=== PATIENT | male | born 1945 | race Caucasian/White ===

== ENCOUNTER 2018-07-14 12:15 | Observation (INO) | payer MEDICARE, OTHER ==
[~2018-07-14] VITALS: Ht 172.7 cm; Wt 94.0 kg
[2018-07-14] MEDS ORDERED: DICL50TA11 PO (17:41)
[2018-07-14] MEDS ORDERED: GEMF600T8 PO (17:41)
[2018-07-14] MEDS ORDERED: ATEN50TA PO (17:41)
[2018-07-14] MEDS ORDERED: CLON-379 PO (17:41)
[2018-07-14] MEDS ORDERED: TAMS0.4C2 PO (17:42)
[2018-07-14] MEDS ORDERED: DONE10TA7 PO (17:42)
[2018-07-14] MEDS ORDERED: ATOR20TA38 PO (17:43)
[2018-07-14] MEDS ORDERED: EZET10TA31 PO (17:44)
[2018-07-14] MEDS ORDERED: ESOM40CA PO (17:44)
[2018-07-14] MEDS ORDERED: ADV25050 INHALATION (17:44)
[2018-07-14] MEDS ORDERED: LINA145C PO (17:45)
[2018-07-14] MEDS ORDERED: DUTA0.5C PO (17:45)
[2018-07-14] MEDS ORDERED: ICOS1CAP PO (17:46)
[2018-07-14] MEDS ORDERED: ERGO500013 PO (17:47)
[2018-07-14] MEDS ORDERED: ONDANSETRON 4 MG INJ IV PRN ×2 (19:00→22:00)
[2018-07-14] MEDS ORDERED: ASPIRIN 81 MG TAB PO ONE (19:00)
[2018-07-14] MEDS ORDERED: ACETAMINOPHEN 325 MG TAB PO PRN ×2 (19:00→22:00)
[2018-07-14 20:41] VITALS: PULSE 64
[2018-07-14 20:49] VITALS: BP 172/82; PULSE 63; RESP 18
--- NOTE | 2018-07-14 21:39 | ERD ---
ER Documentation Chief Complaint Chief Complaint RIGHT SIDE FACIAL NUMBNESS 2 DAYS AGO,RESOLVED, KERNS TODAY HPI This is a 72-year-old male with a past medical history of hypertension, hyperlipidemia, COPD, dementia who is presenting with 2 days of left-sided facial paresthesias with forehead sparing and an associated right-sided head ache. The patient is also felt lightheaded and slightly imbalanced over the last few days as well. The patient does not endorse any alleviating or exacerbating factors. His symptoms started upon waking 2 days ago. The patient has had no other focal deficits. The patient has had no weakness or numbness or tingling to the extremities. The patient denies feeling sick recently. The patient denies fever or chills. The patient has had no headache or vision changes. The patient does not endorse neck or back pain. The patient denies lightheadedness or dizziness. The patient has had no chest pain or trouble breathing. The patient denies nausea or vomiting. The patient denies abdominal pain. The patient denies changes to bowel movements or urination. ROS All systems reviewed and are negative except as per history of present illness. Medications Home Meds Reported Medications Ergocalciferol (Vitamin D2) (VITAMIN D2) 50,000 Unit Capsule, [address] UNIT PO Q7D, CAP OR THU. 07/14/18 Icosapent Ethyl (VASCEPA) 1 Gm Capsule, 1 GM PO QID, CAP 07/14/18 Linaclotide (LINZESS) 145 Mcg Capsule, 145 MCG PO DAILY, #30 CAP 07/14/18 Dutasteride* (Avodart*) 0.5 Mg Capsule, 0.5 MG PO DAILY, CAP 07/14/18 Ezetimibe* (Zetia*) 10 Mg Tablet, 10 MG PO DAILY, TAB 07/14/18 Esomeprazole Mag Trihydrate (Nexium) 40 Mg Capsule.dr, 40 MG PO DAILY, #30 CAP 07/14/18 Salmeterol Xinaf/Fluticasone* (Advair*) 250-50 Diskus Inhaler, 1 INH INHALATION BID, #1 INHALER 07/14/18 Atorvastatin Calcium* (Atorvastatin Calcium*) 20 Mg Tablet, 20 MG PO QHS, #30 TAB 07/14/18 Donepezil* (Aricept*) 10 Mg Tablet, 10 MG PO DAILY, TAB 07/14/18 Tamsulosin Hcl* (Tamsulosin Hcl*) 0.4 Mg Cap.er.24h, 0.4 MG PO HS, CAP 07/14/18 Diclofenac Sodium* (Diclofenac Sodium*) 50 Mg Tablet.dr, 50 MG PO BID, #60 TAB 07/14/18 Gemfibrozil* (Gemfibrozil*) 600 Mg Tablet, 600 MG PO BID, TAB 07/14/18 Atenolol* (Atenolol*) 50 Mg Tablet, 50 MG PO DAILY, #30 TAB 07/14/18 Clonidine Hcl* (Clonidine Hcl*) 0.1 Mg Tab, 0.1 MG PO DAILY, TAB 07/14/18 Allergies Allergies: Coded Allergies: No Known Allergy (Unverified , 07/14/18) PMhx/Soc History of Surgery: No Anesthesia Reaction: No Hx Neurological Disorder: No Hx Respiratory Disorders: No Hx Cardiac Disorders: Yes (HTN, HYPERCHOLESTEROLEMIA) Hx Psychiatric Problems: No Hx Miscellaneous Medical Probl: No Hx Alcohol Use: Yes Hx Substance Use: No Hx Tobacco Use: Yes Smoking Status: Current every day smoker Physical Exam Vitals Vital Signs Date Temp Pulse Resp B/P (MAP) Pulse Ox O2 O2 Flow FiO2 Time Delivery Rate 07/14/18 63 16 132/71 96 Room Air 17:35 (91) 07/14/18 98.0 64 18 157/70 99 12:28 (99) Physical Exam Const: No apparent distress, well-developed, well-nourished Head: Normocephalic, Atraumatic Eyes: Normal Conjunctiva. Extraocular movements intact. Pupils equal, round and reactive to light ENT: Normal External Ears, Nose and Mouth. Neck: Full range of motion. No meningismus. Resp: Clear to auscultation bilaterally, No wheezes, rales or rhonchi Cardio: Regular rate and rhythm. No murmurs, rubs or gallops Abd: Soft, non tender, non distended. Normal bowel sounds Skin: No petechiae or rashes Back: No midline tenderness. No CVA tenderness Ext: No cyanosis, or edema Neur: Awake and alert, oriented 4. Cranial nerves intact. No facial droop. Normal strength, sensation and coordination. Psych: Normal Mood and Affect Result Diagram: 07/14/18 1616 07/14/18 1616 Results 24 hrs Laboratory Tests Test 07/14/18 16:16 White Blood Count 8.9 10^3/ul Red Blood Count 4.76 10^6/ul Hemoglobin 14.6 g/dl Hematocrit 43.1 % Mean Corpuscular Volume 90.5 fl Mean Corpuscular Hemoglobin 30.7 pg Mean Corpuscular Hemoglobin Concent 33.9 g/dl Red Cell Distribution Width 13.0 % Platelet Count 213 10^3/UL Mean Platelet Volume 9.8 fl Immature Granulocytes % 0.600 % Neutrophils % 60.5 % Lymphocytes % 29.6 % Monocytes % 6.1 % Eosinophils % 3.0 % Basophils % 0.2 % Nucleated Red Blood Cells % 0.0 /100WBC Immature Granulocytes # 0.050 10^3/ul Neutrophils # 5.4 10^3/ul Lymphocytes # 2.6 10^3/ul Monocytes # 0.5 10^3/ul Eosinophils # 0.3 10^3/ul Basophils # 0.0 10^3/ul Nucleated Red Blood Cells # 0.0 10^3/ul Prothrombin Time 11.6 Sec Prothrombin Time Ratio 0.9 INR International Normalized Ratio 0.84 Activated Partial Thromboplast Time 30.9 Sec Urine Color YELLOW Urine Clarity CLEAR Urine pH 5.0 Urine Specific [place] 1.023 Urine Ketones NEGATIVE mg/dL Urine Nitrite NEGATIVE mg/dL Urine Bilirubin NEGATIVE mg/dL Urine Urobilinogen NEGATIVE mg/dL Urine Leukocyte Esterase NEGATIVE Lacey/ul Urine Microscopic RBC 2 /HPF Urine Microscopic WBC 1 /HPF Urine Mucus FEW /HPF Urine Hemoglobin 1+ mg/dL Urine Glucose NEGATIVE mg/dL Urine Total Protein NEGATIVE mg/dl Sodium Level 144 mmol/L Potassium Level 4.0 mmol/L Chloride Level 102 mmol/L Carbon Dioxide Level 30 mmol/L Anion Gap 12 Blood Urea Nitrogen 15 mg/dl Creatinine 0.83 mg/dl Est Glomerular Filtrat Rate mL/min mL/min Glucose Level 95 mg/dl Hemoglobin A1c 5.5 % Calcium Level 9.3 mg/dl Troponin I < 0.012 ng/ml Triglycerides Level 371 mg/dl Cholesterol Level 202 mg/dl LDL Cholesterol, Calculated 105 mg/dl HDL Cholesterol 23 mg/dl Cholesterol/HDL Ratio 8.7 RATIO Urine Opiates Screen Negative Urine Barbiturates Negative Urine Amphetamines Screen Negative Urine Benzodiazepines Screen Negative Urine Cocaine Screen Negative Urine Cannabinoids Negative Procedures/MDM MDM The patient's presentation warrants further investigation. Previous medical records, if available, were reviewed. LABS The patient's laboratory testing was obtained and reviewed. No emergent tr eatment was required unless described below. CBC: No E/o of systemic infection or severe anemia or thrombocytopenia BMP: No E/o severe acidosis or alkalosis or renal failure or diabetic ketoacidosis PT/INR: No E/o significant coagulopathy Troponin: No E/o acute ischemia Lipid panel: Hyperlipidemia and hypertriglyceridemia Urine: No E/o acute infection or hematuria Tox: No E/o alcohol abuse. No E/o illicit drug use. No E/o salicylate or acetaminophen use. EKG EKG read by me: Rate/Rhythm: Sinus bradycardia with a marketed sinus arrhythmia at 59 bpm QRS and QTc. Intervals: Normal prolonged [place] interval indicating a first-degree AV block. Beals: Normal Impression: No evidence of acute ischemia. Sinus arrhythmia IMAGING Imaging and Radiology interpretation reviewed. CXR FINDINGS: Mild central venous congestion. No pulmonary consolidation or edema. No effusion or pneumothorax. Cardiac silhouette is mildly enlarged. No acute osseous abnormality. Calcified atherosclerosis of the thoracic aorta. IMPRESSION: Mild cardiomegaly with mild central venous congestion. Calcified atherosclerosis of the thoracic aorta. Electronically viewed and signed by Physician Ike on 07/14/2018 17:01 CT Head IMPRESSION: No acute intracranial abnormalities. Mild chronic-appearing microvas cular ischemic changes of the supratentorial white matter. MRI of the brain recommended for further evaluation. Critical results were discussed with Dr. Wagner by telephone 07/14/2018 4:48:54 PM. Electronically viewed and signed by Demarcus House MD, MD on 07/14/2018 16:52 TREATMENT/DISPOSITION The patient presents with right-sided facial numbness and a headache. Symptoms have been ongoing for over 2 days. While the patient's physical exam is reassuring, I cannot definitively rule out a TIA from the emergency department. I do feel the patient would benefit from MRI imaging in the hospital. The patient is not a TPA or manual thrombectomy candidate. The patient also presents with a headache. Differential diagnosis includes migraine, tension headache, cluster headache. The patient has no focal deficits. The neurologic exam is reassuring. I have decreased suspicion for cerebral ischemia. There was no trauma or injury. There is no personal or family history of cerebral aneurysm. This is not the worst headache of the patient's life. It was not acutely severe. It is been progressive in nature. I have decreased suspicion for SAH or other ICH. I have low suspicion for temporal arteritis, cavernous venous thrombosis, subdural hematoma, epidural hematoma, meningitis. The patient was treated with a dose of aspirin in the emergency department. At this time, I feel that the patient requires admission for further evaluation and management. The patient will be admitted to Dr. Armendariz in accordance with the patient's insurance. The patient was accepted to telemetry at 6:40 PM on July 14, 2018. Disclaimer: Inadvertent spelling and grammatical errors are likely due to EHR/dictation software use and do not reflect on the overall quality of patient care. Note that the electronic time recorded on this note does not necessarily reflect the actual time of the patient encounter. Departure Diagnosis: Primary Impression: TIA (transient ischemic attack) Additional Impressions: Headache Headache type: unspecified Headache chronicity pattern: acute headache Intractability: not intractable Qualified Codes: R51 - Headache Hyperlipidemia Hyperlipidemia type: unspecified Qualified Codes: E78.5 - Hyperlipidemia, unspecified Hypertriglyceridemia Condition: MILO Tafoya MD Jul 14, 2018 21:39
[2018-07-14] MEDS ORDERED: ZOLPIDEM 5 MG TAB PO PRN (22:00)
[2018-07-14] MEDS ORDERED: CLONIDINE 0.1 MG/24 HR PATCH TRANSDERM SCH (23:00)
[2018-07-14 23:16] VITALS: Ht 172.7 cm; Wt 94.0 kg
[2018-07-14 23:37] VITALS: BP 123/66; PULSE 57; RESP 18
[2018-07-14] MEDS: ENALAPRIL 2.5 MG TAB PO SCH (23:49)
[2018-07-15] VITALS (9 sets, daily range): BP systolic 117–173; BP diastolic 55–79; PULSE 53–70; RESP 16–18
--- NOTE | 2018-07-15 01:50 | CONS ---
DATE OF ADMISSION: 07/14/2018 DATE OF CONSULTATION: Thank you, Dr. Zimmer, for your kind referral for evaluation of TIA. HISTORY OF PRESENT ILLNESS: The patient is a 72-year-old gentleman with history of hypertension and noncompliance with medications. He stated that a few days ago he noticed right cheek numbness which was present for about 2 days. Also, later he noticed some occipital headaches also day before yester day and yesterday on and off. He felt that possibly his headache were related to elevated blood pres sure. His symptoms have resolved. No headache, no numbness on the face. He has also history of lef t-sided Sumner's palsy treated by primary MD, about 4 months ago, which resolved. SOCIAL HISTORY: Social alcohol. No drug use. Patient is a cigarette smoker. MEDICATIONS PRIOR TO ADMISSION: 1. Vitamin D2. 2. Vascepa 3. Linzess. 4. Avodart. 5. Zetia. 6. Nexium. 7. Advair. 8. Atorvastatin 20 mg. 9. Also, he takes Donepezil 10 mg. 10. Tamsulosin. 11. Diclofenac. 12. Gemfibrozil. 13. Atenolol. 14. Clonidine. ALLERGIES: NONE. FAMILY HISTORY: Noncontributory. Today, patient continued his home medications, though also Protonix and aspirin 81 mg were added. He had a CAT scan of the head which shows chronic white matter disease, no acute abnormality. MRI re commended. Chest x-ray was read as mild cardiomegaly. PHYSICAL EXAMINATION: VITAL SIGNS: On examination today vitals, 97.6 temperature, 63 pulse, 18 respirations, 170/82 blood pressure. GENERAL: Not in acute distress, lying in bed. HEENT: Normocephalic, atraumatic head. NECK: No carotid bruits. No thyromegaly. LUNGS: Clear to auscultation bilaterally. CARDIAC: Normal cardiac rhythm and sounds. ABDOMEN: Soft, nontender. EXTREMITIES: No cyanosis, clubbing or edema. NEUROLOGIC: He is awake, alert, and oriented x3 with fluent speech. Cranial nerve examination shows intact visual woodward bilaterally. Pupils reactive from 3 to 2 mm bilaterally. Extraocular movement s intact without nystagmus. Symmetrical face. Preserved facial strength and sensation. Tongue is i n midline. Palate elevates symmetrically. Motor strength examination preserved in all extremities. Normal bulk, tone, and strength. Sensory examination grossly intact to light touch and pain. Deep tendon reflexes 1+ upper extremities, absent in lower extremities. Downgoing toes bilaterally. Coor dination preserved on [id number] testing. No dysmetria or tremor. Gait was not assessed. The patient denied any problem with ambulation. IMPRESSION: A couple of days of right facial numbness which later was accompanied by occipital heada albert, symptoms resolved. The patient has multiple risk factors for stroke, I am not sure if his episo de was TIA, usually last less than 24 hours or CVA have some other etiology, but I think it is reason able to workup as possible TIA. The patient needs to have his blood pressure controlled. I will inc rease Lipitor to 80 mg. Also, continue aspirin, keep patient normotensive and euglycemic. We will c heck his carotid ultrasound and echocardiogram as well. Thank you very much for this interesting consultation. Dictated By: MARQUES HILLS/RAMOS Conf#: [id number] DID#: [id number]
[2018-07-15] MEDS ORDERED: PANTOPRAZOLE (EC) 40 MG TAB PO SCH (06:00)
--- NOTE | 2018-07-15 06:42 | NUR ---
end of shift note: received pt from ER around 2100 came in for right facial droop and headache, upon arrived, pt symptoms subsided, pt able to walk and alert oriented x4, pt stated no longer feeling pain/headache, or numbness on the face, SBP was on 170s on arrival, BP medications given and BP more stable to 120s, MD notified and orders are in, neuro MD consulted, continue to monitor pt
[2018-07-15] MEDS ORDERED: ERGOCALCIFEROL 50,000 UNIT CAP PO SCH (09:00)
[2018-07-15] MEDS ORDERED: GEMFIBROZIL 600 MG TAB PO SCH (09:00)
[2018-07-15] MEDS ORDERED: DONEPEZIL 10 MG TAB PO SCH (09:00)
[2018-07-15] MEDS ORDERED: ASPIRIN 81 MG TAB PO SCH (09:00)
[2018-07-15] MEDS ORDERED: ATENOLOL 50 MG TAB PO SCH (09:00)
[2018-07-15] MEDS: ENALAPRIL 2.5 MG TAB PO SCH (09:00)
[2018-07-15] MEDS ORDERED: DUTASTERIDE 0.5 MG CAP PO SCH (09:00)
[2018-07-15] MEDS ORDERED: DICLOFENAC (EC) 25 MG TAB PO SCH (09:00)
[2018-07-15] MEDS ORDERED: EZETIMIBE 10 MG TAB PO SCH (09:00)
--- NOTE | 2018-07-15 09:27 | HP ---
Date/Time of Note Date/Time of Note DATE: 07/15/18 TIME: 09:14 Assessment/Plan VTE Prophylaxis Risk score (from Ns)>0 risk: 4 SCD applied (from Ns): Yes SCD contraindicated: low risk/ambulating Pharmacological prophylaxis: LMWH Lines/Catheters IV Catheter Type (from Nrs): [place] line still needed: No Reason Cath still needed: urinary retention Assessment/Plan Assessment/Plan 1. Transient ischemic attack. Improving. 2. Hypertension out of control now better controlled on clonidine patch 0.1. 3. Dyslipidemia 4. Peripheral arterial disease 5 occipital neuralgia 6. First-degree AV block 7. COPD 8. BPH 9. Left scapular mass with size about 10 cm pain less movable. 10. Mild kyphosis. 11. History of incompletely resolved left Sumner's palsy. 12. Trace hematuria 13. Nicotine addiction 14. Noncompliance to medications Result Diagram: 07/15/18 0539 07/15/18 0539 Results 24hrs Laboratory Tests Test 07/14/18 16:16 07/15/18 05:39 White Blood Count 8.9 7.6 Red Blood Count 4.76 4.78 Hemoglobin 14.6 14.4 Hematocrit 43.1 43.1 Mean Corpuscular Volume 90.5 90.2 Mean Corpuscular Hemoglobin 30.7 30.1 Mean Corpuscular Hemoglobin Concent 33.9 33.4 Red Cell Distribution Width 13.0 12.9 Platelet Count 213 204 Mean Platelet Volume 9.8 10.0 Immature Granulocytes % 0.600 H 0.300 Neutrophils % 60.5 51.4 Lymphocytes % 29.6 36.2 Monocytes % 6.1 7.1 Eosinophils % 3.0 4.6 Basophils % 0.2 0.4 Nucleated Red Blood Cells % 0.0 0.0 Immature Granulocytes # 0.050 H 0.020 Neutrophils # 5.4 3.9 Lymphocytes # 2.6 2.7 Monocytes # 0.5 0.5 Eosinophils # 0.3 0.4 Basophils # 0.0 0.0 Nucleated Red Blood Cells # 0.0 0.0 Prothrombin Time 11.6 L Prothrombin Time Ratio 0.9 INR International Normalized Ratio 0.84 Activated Partial Thromboplast Time 30.9 Urine Color YELLOW Urine Clarity CLEAR Urine pH 5.0 Urine Specific [place] 1.023 Urine Ketones NEGATIVE Urine Nitrite NEGATIVE Urine Bilirubin NEGATIVE Urine Urobilinogen NEGATIVE Urine Leukocyte Esterase NEGATIVE Urine Microscopic RBC 2 Urine Microscopic WBC 1 Urine Mucus FEW A Urine Hemoglobin 1+ H Urine Glucose NEGATIVE Urine Total Protein NEGATIVE Sodium Level 144 143 Potassium Level 4.0 3.9 Chloride Level 102 101 Carbon Dioxide Level 30 28 Anion Gap 12 14 H Blood Urea Nitrogen 15 16 Creatinine 0.83 0.80 Est Glomerular Filtrat Rate mL/min Glucose Level 95 92 Hemoglobin A1c 5.5 Calcium Level 9.3 9.1 Troponin I < 0.012 Triglycerides Level 371 H 245 H Cholesterol Level 202 H 195 LDL Cholesterol, Calculated 105 125 HDL Cholesterol 23 L 21 L Cholesterol/HDL Ratio 8.7 9.2 Urine Opiates Screen Negative Urine Barbiturates Negative Urine Amphetamines Screen Negative Urine Benzodiazepines Screen Negative Urine Cocaine Screen Negative Urine Cannabinoids Negative Phosphorus Level 4.6 Magnesium Level 1.7 Thyroid Stimulating Hormone (TSH) 2.250 HPI/ROS Admit Date/Time Admit Date/Time Jul 14, 2018 at 18:40 Hx of Present Illness Right-sided neck and right temporoparietal pain along with numbness of the right side of the face for 3 days duration. Now no numbness of the right side of the face but there is pain which is pulsatile in the right occipital parietal temporal area involving the retroauricular and and partially to the right temporal area. 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 Patient admits that he was noncompliant to hypertensive medications and her blood pressure at the time of initial appearance of the symptoms where systolic more than 170. called the patient gave him some kind of bowels to overlap the skin which had no effect. Patient states that he was able to go to the adult daycare center and generally was doing fine but because of discontinuation of pulsatile pain in neck and back of the head along with the numbness of the face he ended up in the emergency room of [facility]. CT of the head had shown a micro-angiopathic changes only no focal abnormalities. Electrocardiogram was positive for a first-degree AV block with sinus rhythm. Dyslipidemia was evident on lipid panel. I saw the patient just now and blood pressure now is systolic 118 after giving her Catapres patch I will hold other antihypertensive medications because he responded to alpha jaycob very well. I reviewed the carotid Doppler which showed 25-27% right and left subsequently narrowing of the carotid arteries at the bifurcation. I reviewed the note of Dr. Roldan . ROS Constitutional: improved; No no complaints, No chills, No diaphoresis, No disoriented, No fatigue, No febrile, No nausea, No poor po, No weight change, No other Eyes: No no complaints, No pain, No discharge, No redness, No visual change, No other ENT: No no complaints, No bleeding, No pain, No congestion, No discharge, No dysphagia, No sore throat, No other Respiratory: cough, shortness of breath; No no complaints, No pain, No pleuritic pain, No sputum, No wheezing, No other Cardiovascular: chest pain, palpitations; No no complaints, No edema, No lightheadedness, No orthopenea, No paroxysmal nocturnal dyspnea, No other Gastrointestinal: constipation, passing stool; No no complaints, No pain, No blood, No decreased appetite, No diarrhea, No flatus, No nausea, No vomiting, No other Genitourinary: dysuria (Nocturia x3 with decrease of the stream of the urine.) Musculoskeletal: back pain, neck pain; No no complaints, No bone/joint pain, No restricted range of motion, No swelling, No other Skin: No no complaints, No bruising, No erythema, No laceration, No pruritis, No rash, No skin lesions, No other Neurologic: headache; No no complaints, No confusion, No dizziness, No syncope, No seizure, No other Endocrine: No no complaints, No polyuria, No polydypsia, No dry skin, No temp intolerance, No weight change, No other Lymphatic: No no complaints, No adenopathy, No tender nodes, No lymphadema, No other Psychological: No no complaints, No nl mood/affect, No anxiety, No confusion, No depression, No suicidal, No other Immunologic: No no complaints, No immunodeficiency, No pruritis, No rhinitis, No urticaria, No other PMH/Family/Social Past Medical History Medical History: coronary artery disease, GERD Medications Current Medications Ondansetron HCl (Zofran Inj) 4 mg ER BRIDGE PRN IV nausea; Start 07/14/18 at 19:00; Stop 07/15/18 at 18:59 Acetaminophen (Tylenol Tab) 650 mg ER BRIDGE PRN PO pain; Start 07/14/18 at 19:00; Stop 07/15/18 at 18:59 Atenolol (Tenormin) 50 mg DAILY PO ; Start 07/15/18 at 09:00 Clonidine (Catapres) 0.1 mg DAILY PO ; Start 07/15/18 at 09:00 Diclofenac Sodium (Voltaren) 50 mg BID PO Last administered on 07/15/18 08:58; Admin Dose 50 MG; Start 07/15/18 at 09:00 Donepezil HCl (Aricept) 10 mg DAILY PO Last administered on 07/15/18 08:59; Admin Dose 10 MG; Start 07/15/18 at 09:00 Dutasteride (Avodart) 0.5 mg DAILY PO Last administered on 07/15/18 08:59; Admin Dose 0.5 MG; Start 07/15/18 at 09:00 Ergocalciferol (Drisdol) 50,000 unit Th@0900 PO Last administered on 07/15/18 08:59; Admin Dose 50,000 UNIT; Start 07/15/18 at 09:00 EZETIMIBE (Zetia) 10 mg DAILY PO Last administered on 07/15/18 08:59; Admin Dose 10 MG; Start 07/15/18 at 09:00 Gemfibrozil (Lopid) 600 mg BID PO Last administered on 07/15/18 08:59; Admin Dose 600 MG; Start 07/15/18 at 09:00 Tamsulosin HCl (Flomax) 0.4 mg HS PO ; Start 07/15/18 at 21:00 Aspirin (Aspirin) 81 mg DAILY PO Last administered on 07/15/18 08:58; Admin Dose 81 MG; Start 07/15/18 at 09:00 Pantoprazole (Protonix Tab) 40 mg DAILY@06 PO Last administered on 07/15/18 06:13; Admin Dose 40 MG; Start 07/15/18 at 06:00 Ondansetron HCl (Zofran Inj) 4 mg Q8H PRN IV NAUSEA AND/OR VOMITING; Start 07/14/18 at 22:00 Zolpidem Tartrate (Ambien) 10 mg HS PRN PO INSOMNIA; Start 07/14/18 at 22:00 Clonidine HCl (Catapres-Tts 1 Patch) 1 patch We@2300 TRANSDERM Last administered on 07/14/18at 23:38; Admin Dose 1 PATCH; Start 07/14/18 at 23:00 Enalapril Maleate (Vasotec) 2.5 mg DAILY PO Last administered on 07/14/18at 23:49; Admin Dose 2.5 MG; Start 07/14/18 at 22:00 Acetaminophen (Tylenol Tab) 650 mg Q6H PRN PO MILD PAIN(1-3)OR ELEVATED TEMP; Start 07/14/18 at 22:00 Atorvastatin Calcium (Lipitor) 80 mg QHS PO ; Start 07/15/18 at 21:00 Coded Allergies: No Known Allergy (Unverified , 07/14/18) Family History Significant Family History: heart disease, COPD, hypertension, lung disease Social History Alcohol Use: rarely Smoking Status: Current every day smoker Drug Use: none Exam/Review of Systems Vital Signs Vitals Vital Signs Date Temp Pulse Resp B/P (MAP) Pulse Ox O2 O2 Flow FiO2 Time Delivery Rate 07/15/18 97.7 63 16 118/55 97 07:15 (76) 07/14/18 Room Air 20:49 Intake and Output 07/14/18 07/14/18 07/15/18 1515:00 23:00 07:00 IntakeIntake Total 400 ml BalanceBalance 400 ml Exam Constitutional: alert, oriented, well developed, distress; No non-verbal, No frail, No other Psych: No no complaints, No nl mood/affect, No anxiety, No confusion, No depression, No suicidal, No other Head: normocephalic, atraumatic; No lacerations, No hematomas, No other Eyes: EOMI, nl lids, PERRL; No nl conjunctiva, No nl sclera, No icteric, No fundi, disc, No other ENMT: No nl external ears & nose, No nl lips & teeth, No nl nasal mucosa & septum, No mucosa pink and moist, No intubated, No tympanic membranes, No other Neck: bruits, nuchal rigidity (Mild rigidity of the neck. Tenderness on the greater occipital and lesser occipital nerve areas. Positive decreased sensati on in the right temporoparietal region. Possible mild facial skin illness over the right.); No supple, No non-tender, No jvd, No masses, No thyromegaly, No other Respiratory: normal air movement; No clear to auscultation, No congested cough, No crackles/rales, No diminishe d breath sounds, No intercostal retraction, No labored breathing, No respirations, No tactile fremitus, No wheezing, No other Cardiovascular: regular rate and rhythm, nl pulses, bruits, systolic murmur; No diastolic murmur, No edema, No gallop, No irregular rhythm, No jugular venous distention (JVD), No murmurs/extra sounds, No rub, No S3, No S4, No other Gastrointestinal: soft, nl liver, spleen, bowel sounds; No non-tender, No ascites, No distended, No firm, No hepatomegaly, No mass, No rebound or guarding, No splenomegaly, No surgical scars, No tender, No other Genitourinary - Male: nl penis, nl scrotum; No CVA tenderness, No discharge, No other Genitourinary - Female: No nl adnexae, No nl external genitalia, No CMT, No CVA tenderness, No uterus, No other Musculoskeletal: nl extremities to inspection, nl gait and stance, joint tenderness, muscle tone, muscle weakness, range of motion; No spine non-tender, No swelling, No other Neurological: [employer] II-XII intact, nl mental status, nl speech, nl strength, DTR's symmetric, numbness (As was described above.), reflexes; No confused, No focal weakness, No lethargic, No unresponsive, No other Skin: nl turgor; No rash or lesions, No diaphoresis, No ecchymosis, No laceration, No puncture, No other Lymph: No nl lymph nodes, No enlarged, No nontender, No other PAULINA SIDDIQUI MD Jul 15, 2018 09:27
[2018-07-15] MEDS ORDERED: NICOTINE (7 MG/24 HR) PATCH TRANSDERM SCH (10:30)
--- NOTE | 2018-07-15 14:54 | RADRPT ---
Echocardiogram Report Patient Name: JAQUELINE HOOPER Gender: Male Date: 1945 Study Date: 15-Jul-2018 Salon Supervisor: Todd Romero [facility] Location: [address] Ref. Physician: MARQUES MORAN Quality: Adequate Procedures: Transthoracic echocardiogram with complete 2D, M-Mode, and doppler examination. Indications: Transient Ischemic Attack. 2D/M Mode Doppler Measurement Value Normal Ranges Measurement Value Normal Ranges LVIDd 2D 4.4 3.5 - 5.6 cm AV Peak [place] 1.1 m/sec LVIDs 2D 2.7 2.1 - 4.1 cm AV Peak PG 4.0 mmHg FS 2D 38.2 % LVOT Peak [place] 0.9 m/sec LVPWd 2D 1.0 0.6 - 1.1 cm LVOT Peak PG 3.0 mmHg IVSd 2D 1.0 0.6 - 1.1 cm MV E Peak [place] 1.0 m/sec IVS/LVPW 2D 1.0 MV A Peak [place] 0.8 m/sec AoR Diam 2D 2.9 2.0 - 3.7 cm MV E/A 1.2 LA/Ao 2D 1 0 - 1 MV Decel Time 225 msec EDV 2D 85.2 cm3 MV E/A 1.2 ESV 2D 20.1 cm3 RA Pressure 8.0 LA Dimen 2D 3.5 2.3 - 4.0 cm Findings Left Ventricle: Normal left ventricular systolic function. Normal left ventricular cavity size. Normal left ventricular wall thickness. Ejection fraction is visually estimated at 55 %. Tissue Doppler/Mitral Doppler indices are within normal limits. Right Ventricle: Normal right ventricular size. Normal right ventricular systolic function. Left Atrium: The left atrium is normal in size. Right Atrium: The right atrium is normal in size. Mitral Valve: Mild mitral annular calcification. Trace mitral regurgitation. Aortic Valve: No significant aortic stenosis or insufficiency. Aortic cusps appear mildly calcified. Tricuspid Valve: Normal appearance of the tricuspid valve. Unable to obtain RVSP due to minimal presence of tricuspid regurgitation. Pulmonic Valve: Pulmonic valve not well visualized. There is trace pulmonic regurgitation. Pericardium: Normal pericardium with no significant pericardial effusion. Aorta: Normal aortic root. IVC: The IVC is not well visualized. Conclusions Normal left ventricular systolic function. Normal left ventricular cavity size. Normal left ventricular wall thickness. Ejection fraction is visually estimated at 55 %. Tissue Doppler/Mitral Doppler indices are within normal limits. No significant valvular stenosis or regurgitation seen. Unable to obtain RVSP due to minimal presence of tricuspid regurgitation. Electronically Signed By: Omar Kenny 15-Jul-2018 14:54:07 -0800 Patient Name: JAQUELINE HOOPER Study Date: 15-Jul-2018 [id number]
--- NOTE | 2018-07-15 15:30 | CONS ---
Assessment/Plan Assessment/Plan Hospital Course (Demo Recall) Neck/facial numbness/pain: ?radiculopathy. Being evaluated for TIA. Echo normal and no arrhythmias on tele PACs: seen on tele, benign HTN: controlled COPD -continue ASA -lipitor has been increased to 80mg. Caution as also on gemfibrozil -continue atenolol 50mg daily -on clonidine patch Consultation Date/Type/Reason Admit Date/Time Jul 14, 2018 at 18:40 Date of Consultation: Jul 15, 2018 Type of Consult Cardiology Reason for Consultation TIA Requesting Provider: PAULINA SIDDIQUI MD Date/Time of Note DATE: 07/15/18 TIME: 15:28 Hx of Present Illness 72 yo M with a h/o COPD, HTN, who presented with right facial numbness/pain in the back of his ear. Workup so far is negative including head CT and carotid ultrasound but he is being evaluated by neurology for possible TIA. He is pending MRI. Past Medical History Home Meds Reported Medications Ergocalciferol (Vitamin D2) (VITAMIN D2) 50,000 Unit Capsule, 48746 UNIT PO Q7D, CAP OR THU. 07/14/18 Icosapent Ethyl (VASCEPA) 1 Gm Capsule, 1 GM PO QID, CAP 07/14/18 Linaclotide (LINZESS) 145 Mcg Capsule, 145 MCG PO DAILY, #30 CAP 07/14/18 Dutasteride* (Avodart*) 0.5 Mg Capsule, 0.5 MG PO DAILY, CAP 07/14/18 Ezetimibe* (Zetia*) 10 Mg Tablet, 10 MG PO DAILY, TAB 07/14/18 Esomeprazole Mag Trihydrate (Nexium) 40 Mg Capsule.dr, 40 MG PO DAILY, #30 CAP 07/14/18 Salmeterol Xinaf/Fluticasone* (Advair*) 250-50 Diskus Inhaler, 1 INH INHALATION BID, #1 INHALER 07/14/18 Atorvastatin Calcium* (Atorvastatin Calcium*) 20 Mg Tablet, 20 MG PO QHS, #30 TAB 07/14/18 Donepezil* (Aricept*) 10 Mg Tablet, 10 MG PO DAILY, TAB 07/14/18 Tamsulosin Hcl* (Tamsulosin Hcl*) 0.4 Mg Cap.er.24h, 0.4 MG PO HS, CAP 07/14/18 Diclofenac Sodium* (Diclofenac Sodium*) 50 Mg Tablet.dr, 50 MG PO BID, #60 TAB 07/14/18 Gemfibrozil* (Gemfibrozil*) 600 Mg Tablet, 600 MG PO BID, TAB 07/14/18 Atenolol* (Atenolol*) 50 Mg Tablet, 50 MG PO DAILY, #30 TAB 07/14/18 Clonidine Hcl* (Clonidine Hcl*) 0.1 Mg Tab, 0.1 MG PO DAILY, TAB 07/14/18 Medications Current Medications Ondansetron HCl (Zofran Inj) 4 mg ER BRIDGE PRN IV nausea; Start 07/14/18 at 19:00; Stop 07/15/18 at 18:59 Acetaminophen (Tylenol Tab) 650 mg ER BRIDGE PRN PO pain; Start 07/14/18 at 19:00; Stop 07/15/18 at 18:59 Atenolol (Tenormin) 50 mg DAILY PO ; Start 07/15/18 at 09:00 Clonidine (Catapres) 0.1 mg DAILY PO ; Start 07/15/18 at 09:00 Diclofenac Sodium (Voltaren) 50 mg BID PO Last administered on 07/15/18at 08:58; Admin Dose 50 MG; Start 07/15/18 at 09:00 Dutasteride (Avodart) 0.5 mg DAILY PO Last administered on 07/15/18at 08:59; Admin Dose 0.5 MG; Start 07/15/18 at 09:00 Ergocalciferol (Drisdol) 50,000 unit Th@0900 PO Last administered on 07/15/18at 08:59; Admin Dose 50,000 UNIT; Start 07/15/18 at 09:00 EZETIMIBE (Zetia) 10 mg DAILY PO Last administered on 07/15/18at 08:59; Admin Dose 10 MG; Start 07/15/18 at 09:00 Gemfibrozil (Lopid) 600 mg BID PO Last administered on 07/15/18at 08:59; Admin Dose 600 MG; Start 07/15/18 at 09:00 Tamsulosin HCl (Flomax) 0.4 mg HS PO ; Start 07/15/18 at 21:00 Aspirin (Aspirin) 81 mg DAILY PO Last administered on 07/15/18at 08:58; Admin Dose 81 MG; Start 07/15/18 at 09:00 Pantoprazole (Protonix Tab) 40 mg DAILY@06 PO Last administered on 07/15/18at 06:13; Admin Dose 40 MG; Start 07/15/18 at 06:00 Ondansetron HCl (Zofran Inj) 4 mg Q8H PRN IV NAUSEA AND/OR VOMITING; Start 07/14/18 at 22:00 Zolpidem Tartrate (Ambien) 10 mg HS PRN PO INSOMNIA; Start 07/14/18 at 22:00 Clonidine HCl (Catapres-Tts 1 Patch) 1 patch We@2300 TRANSDERM Last administered on 07/14/18at 23:38; Admin Dose 1 PATCH; Start 07/14/18 at 23:00 Enalapril Maleate (Vasotec) 2.5 mg DAILY PO Last administered on 07/14/18at 23:49; Admin Dose 2.5 MG; Start 07/14/18 at 22:00 Acetaminophen (Tylenol Tab) 650 mg Q6H PRN PO MILD PAIN(1-3)OR ELEVATED TEMP; Start 07/14/18 at 22:00 Atorvastatin Calcium (Lipitor) 80 mg QHS PO ; Start 07/15/18 at 21:00 Nicotine (Nicoderm 7 Mg/ 24 Hr) 1 patch DAILY TRANSDERM Last administered on 07/15/18at 11:04; Admin Dose 1 PATCH; Start 07/15/18 at 10:30 Allergies: Coded Allergies: No Known Allergy (Unverified , 07/14/18) Social History Alcohol Use: rarely Smoking Status: Current every day smoker Drug Use: none Exam/Review of Systems Vital Signs Vitals Vital Signs Date Temp Pulse Resp B/P (MAP) Pulse Ox O2 O2 Flow FiO2 Time Delivery Rate 07/15/18 70 12:01 07/15/18 98.3 16 134/68 97 11:38 (90) 07/14/18 Room Air 20:49 Intake and Output 07/14/18 07/14/18 07/15/18 1414:59 22:59 06:59 IntakeIntake Total 400 ml BalanceBalance 400 ml Labs Result Diagram: 07/15/18 0539 07/15/18 0539 Results 24hrs Laboratory Tests Test 07/14/18 16:16 07/15/18 05:39 White Blood Count 8.9 7.6 Red Blood Count 4.76 4.78 Hemoglobin 14.6 14.4 Hematocrit 43.1 43.1 Mean Corpuscular Volume 90.5 90.2 Mean Corpuscular Hemoglobin 30.7 30.1 Mean Corpuscular Hemoglobin Concent 33.9 33.4 Red Cell Distribution Width 13.0 12.9 Platelet Count 213 204 Mean Platelet Volume 9.8 10.0 Immature Granulocytes % 0.600 H 0.300 Neutrophils % 60.5 51.4 Lymphocytes % 29.6 36.2 Monocytes % 6.1 7.1 Eosinophils % 3.0 4.6 Basophils % 0.2 0.4 Nucleated Red Blood Cells % 0.0 0.0 Immature Granulocytes # 0.050 H 0.020 Neutrophils # 5.4 3.9 Lymphocytes # 2.6 2.7 Monocytes # 0.5 0.5 Eosinophils # 0.3 0.4 Basophils # 0.0 0.0 Nucleated Red Blood Cells # 0.0 0.0 Prothrombin Time 11.6 L Prothrombin Time Ratio 0.9 INR International Normalized Ratio 0.84 Activated Partial Thromboplast Time 30.9 Urine Color YELLOW Urine Clarity CLEAR Urine pH 5.0 Urine Specific [place] 1.023 Urine Ketones NEGATIVE Urine Nitrite NEGATIVE Urine Bilirubin NEGATIVE Urine Urobilinogen NEGATIVE Urine Leukocyte Esterase NEGATIVE Urine Microscopic RBC 2 Urine Microscopic WBC 1 Urine Mucus FEW A Urine Hemoglobin 1+ H Urine Glucose NEGATIVE Urine Total Protein NEGATIVE Sodium Level 144 143 Potassium Level 4.0 3.9 Chloride Level 102 101 Carbon Dioxide Level 30 28 Anion Gap 12 14 H Blood Urea Nitrogen 15 16 Creatinine 0.83 0.80 Est Glomerular Filtrat Rate mL/min Glucose Level 95 92 Hemoglobin A1c 5.5 Calcium Level 9.3 9.1 Troponin I < 0.012 Triglycerides Level 371 H 245 H Cholesterol Level 202 H 195 LDL Cholesterol, Calculated 105 125 HDL Cholesterol 23 L 21 L Cholesterol/HDL Ratio 8.7 9.2 Urine Opiates Screen Negative Urine Barbiturates Negative Urine Amphetamines Screen Negative Urine Benzodiazepines Screen Negative Urine Cocaine Screen Negative Urine Cannabinoids Negative Phosphorus Level 4.6 Magnesium Level 1.7 Thyroid Stimulating Hormone (TSH) 2.250 ANICETO SUNSHINE Jul 15, 2018 15:30
--- NOTE | 2018-07-15 17:53 | NUR ---
MRI of the brain result was read back to Dr Zimmer, informed him that pt wants to go home, son at the bedside, dr Kenny notes was read back to him as well, and ordered to discharge patient home.
--- NOTE | 2018-07-15 18:20 | NUR ---
discharge notes: Keyur Churchill at bedside discharge instruction given and verbalized understanding, heplock was removed, discharge packet given to pt and son, pt left by wheel chair in stable condition.
[2018-07-15] MEDS ORDERED: ATORVASTATIN 80 MG TAB PO SCH (21:00)
[2018-07-15] MEDS ORDERED: ATORVASTATIN 20 MG TAB PO SCH (21:00)
[2018-07-15] MEDS ORDERED: TAMSULOSIN (SR) 0.4 MG CAP PO SCH (21:00)
--- NOTE | 2018-07-15 23:36 | DS ---
Date/Time of Note Date/Time of Note DATE: 07/15/18 TIME: 23:33 Discharge Summary Admission/Discharge Info Admit Date/Time Jul 14, 2018 at 18:40 Discharge Date/Time Jul 15, 2018 at 18:24 Patient Condition: Guarded Hx of Present Illness Right-sided neck and right temporoparietal pain along with numbness of the right side of the face for 3 days duration. Now no numbness of the right side of the face but there is pain which is pulsatile in the right occipital parietal temporal area involving the retroauricular and and partially to the right temporal area. 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 Patient admits that he was noncompliant to hypertensive medications and her blood pressure at the time of initial appearance of the symptoms where systolic more than 170. called the patient gave him some kind of bowels to overlap the skin which had no effect. Patient states that he was able to go to the adult daycare center and generally was doing fine but because of discontinuation of pulsatile pain in neck and back of the head along with the numbness of the face he ended up in the emergency room of [facility]. CT of the head had shown a micro-angiopathic changes only no focal abnormalities. Electrocardiogram was positive for a first-degree AV block with sinus rhythm. Dyslipidemia was evident on lipid panel. I saw the patient just now and blood pressure now is systolic 118 after giving her Catapres patch I will hold other antihypertensive medications because he responded to alpha jaycob very well. I reviewed the carotid Doppler which showed 25-27% right and left subsequently narrowing of the carotid arteries at the bifurcation. I reviewed the note of Dr. Roldan . Hospital Course cva was r/o. He continues to have a right occipital and right temporo-parietal pain. No focal deficit.Planned continue w/u for another CAUSE HIS CURRENT SYMPTOMS. Complience to lipid lowering and antihypertensive medications. Home Meds Reported Medications Ergocalciferol (Vitamin D2) (VITAMIN D2) 50,000 Unit Capsule, 60488 UNIT PO Q7D, CAP OR THU. 07/14/18 Icosapent Ethyl (VASCEPA) 1 Gm Capsule, 1 GM PO QID, CAP 07/14/18 Linaclotide (LINZESS) 145 Mcg Capsule, 145 MCG PO DAILY, #30 CAP 07/14/18 Dutasteride* (Avodart*) 0.5 Mg Capsule, 0.5 MG PO DAILY, CAP 07/14/18 Ezetimibe* (Zetia*) 10 Mg Tablet, 10 MG PO DAILY, TAB 07/14/18 Esomeprazole Mag Trihydrate (Nexium) 40 Mg Capsule.dr, 40 MG PO DAILY, #30 CAP 07/14/18 Salmeterol Xinaf/Fluticasone* (Advair*) 250-50 Diskus Inhaler, 1 INH INHALATION BID, #1 INHALER 07/14/18 Atorvastatin Calcium* (Atorvastatin Calcium*) 20 Mg Tablet, 20 MG PO QHS, #30 TAB 07/14/18 Donepezil* (Aricept*) 10 Mg Tablet, 10 MG PO DAILY, TAB 07/14/18 Tamsulosin Hcl* (Tamsulosin Hcl*) 0.4 Mg Cap.er.24h, 0.4 MG PO HS, CAP 07/14/18 Diclofenac Sodium* (Diclofenac Sodium*) 50 Mg Tablet.dr, 50 MG PO BID, #60 TAB 07/14/18 Gemfibrozil* (Gemfibrozil*) 600 Mg Tablet, 600 MG PO BID, TAB 07/14/18 Atenolol* (Atenolol*) 50 Mg Tablet, 50 MG PO DAILY, #30 TAB 07/14/18 Clonidine Hcl* (Clonidine Hcl*) 0.1 Mg Tab, 0.1 MG PO DAILY, TAB 07/14/18 Primary Care Provider Ion Zimmer MD Time spent on discharge: > 30 minutes Pending Labs Laboratory Tests Test 07/15/18 05:39 White Blood Count 7.6 10^3/ul (4.8-10.8) Red Blood Count 4.78 10^6/ul (4.70-6.10) Hemoglobin 14.4 g/dl (14.0-18.0) Hematocrit 43.1 % (42.0-52.0) Mean Corpuscular Volume 90.2 fl (82.0-101.0) Mean Corpuscular Hemoglobin 30.1 pg (29.0-33.0) Mean Corpuscular Hemoglobin Concent 33.4 g/dl (32.0-37.0) Red Cell Distribution Width 12.9 % (11.5-14.5) Platelet Count 204 10^3/UL (140-415) Mean Platelet Volume 10.0 fl (7.4-10.4) Immature Granulocytes % 0.300 % (0.001-0.429) Neutrophils % 51.4 % (39.0-77.0) Lymphocytes % 36.2 % (15.0-51.0) Monocytes % 7.1 % (0.0-11.0) Eosinophils % 4.6 % (0.0-7.0) Basophils % 0.4 % (0.0-2.0) Nucleated Red Blood Cells % 0.0 /100WBC (0.0-0.0) Immature Granulocytes # 0.020 10^3/ul (0.0-0.031) Neutrophils # 3.9 10^3/ul (1.6-7.5) Lymphocytes # 2.7 10^3/ul (0.8-2.9) Monocytes # 0.5 10^3/ul (0.3-0.9) Eosinophils # 0.4 10^3/ul (0.0-0.5) Basophils # 0.0 10^3/ul (0.0-0.1) Nucleated Red Blood Cells # 0.0 10^3/ul (0.0-0.0) Sodium Level 143 mmol/L (135-144) Potassium Level 3.9 mmol/L (3.5-5.1) Chloride Level 101 mmol/L (97-110) Carbon Dioxide Level 28 mmol/L (21-31) Anion Gap 14 (5-13) Blood Urea Nitrogen 16 mg/dl (7-20) Creatinine 0.80 mg/dl (0.61-1.24) Est Glomerular Filtrat Rate mL/min mL/min (>60) Glucose Level 92 mg/dl (70-220) Calcium Level 9.1 mg/dl (8.4-10.2) Phosphorus Level 4.6 mg/dl (2.5-4.9) Magnesium Level 1.7 mg/dl (1.7-2.5) Triglycerides Level 245 mg/dl (0-149) Cholesterol Level 195 mg/dl (100-200) LDL Cholesterol, Calculated 125 mg/dl HDL Cholesterol 21 mg/dl (31-75) Cholesterol/HDL Ratio 9.2 RATIO Thyroid Stimulating Hormone (TSH) 2.250 MIU/L (0.465-4.680) ION ZIMMER MD Jul 15, 2018 23:36
== END 2018-07-15 18:24 | disposition home or self-care (01) ==
LOC: E/R 12:15 → TEL 18:40
PROVIDERS: ADMIT Family Medicine; ATTEND Family Medicine
DX: R20.0 Anesthesia of skin (principal); R51 Headache; M54.2 Cervicalgia; E78.5 Hyperlipidemia, unspecified; J44.9 Chronic obstructive pulmonary disease, unspecified; I10 Essential (primary) hypertension; F17.200 Nicotine dependence, unspecified, uncomplicated; I73.9 Peripheral vascular disease, unspecified; Z91.14 Patient's other noncompliance with medication regimen; M54.81 Occipital neuralgia; I44.0 Atrioventricular block, first degree; N40.0 Benign prostatic hyperplasia without lower urinary tract symptoms; R22.0 Localized swelling, mass and lump, head; M40.209 Unspecified kyphosis, site unspecified; R31.9 Hematuria, unspecified
CPT/HCPCS: 36415; 70450; 70551; 71045; 80048; 80061; 80307; 81001; 83036; 83735; 84100; 84443; 84484; 85025; 85610; 85730; 93005; 93306; 93880; 99285; G0378